=== PATIENT | female | born 1980 | race Two or more races ===

== ENCOUNTER → 2024-09-08 | Outpatient (CLI) | payer OTHER, SELFPAY ==
--- NOTE | 2024-09-08 13:00 | XR_ITS ---
Examination: Breast ultrasound, unilateral, right complete Date and time of exam: September 08, 2024 1333 hrs. Indications: Right breast lump noticed beginning 2 months ago Technique: Real-time carias scale ultrasonographic imaging performed right breast including all 4 quadrants as well as nipple retroareolar and axillary region. Findings: 2:00 cyst 6 x 6 mm 4:00 oval mass circumscribed 3 x 3 mm Impression: BI-RADS Category 2: Benign findings
--- NOTE | 2024-09-08 13:45 | XR_ITS ---
Examination: Diagnostic digital mammography, unilateral, right Computer aided detection 3-D breast Tomosynthesis, unilateral Date and time of exam: 10/06/2024, 1:47 PM Comparisons : November 2019 through July 2021 Indications: Palpable abnormality medial breast. Technique: Nonmagnified MLO, CC views of the right breast have been obtained, reconstructed from 3-D Tomosynthesis images. R2 computer aided detection program utilized for evaluation of suspicious masses and/or abnormal calcifications. 3-D Tomosynthesis images obtained. Technologist: Findings: The breasts are almost entirely fatty. No evidence of abnormal masses or suspicious calcifications. Impression: Please note patient is overdue for left breast screening mammogram. Left breast screening mammogram was last obtained on July 15, 2021
== END | disposition home or self-care (01) ==
LOC: CDIM 13:10
DX: R92.321 Mammographic fibroglandular density, right breast (principal); N60.01 Solitary cyst of right breast
CPT/HCPCS: 76641; 77061; 77065; G0279